=== PATIENT | female | born 1985 | race Hispanic/Latino ===

== ENCOUNTER 2020-10-29 01:52 | Inpatient (IN) | payer MEDICAID ==
[~2020-10-29] VITALS: Ht 160 cm; Wt 61.7 kg
[2020-10-29] MEDS ORDERED: LACTATED RINGERS 1000ML IV PRN (02:15)
[2020-10-29 02:30] LABS: APPEARANCE,URINE Clear (CLEAR); BILIRUBIN,URINE Negative (NEGATIVE); COLOR,URINE Yellow (YELLOW); GLUCOSE, URINE (UA) Negative (NEGATIVE); KETONES,URINE Negative (NEGATIVE); LEUKOCYTE ESTERASE ,URINE Small (NEGATIVE); NITRATE,URINE Negative (NEGATIVE); OCCULT BLOOD,URINE Negative (NEGATIVE); PROTEIN,URINE Negative (NEGATIVE)
[2020-10-29] MEDS ORDERED: AMPICILLIN 2GM+NS 100ML 100 ML IV SCH (02:45)
[2020-10-29] MEDS ORDERED: LACTATED RINGERS 1000ML 1,000 ML IV PRN (02:45)
[2020-10-29] MEDS ORDERED: EPHEDRINE SULFATE 50 MG/ML AMPULE IVP PRN (02:45)
[2020-10-29] MEDS ORDERED: NALOXONE HCL 0.4 MG/1 ML ML IV PRN (02:45)
[2020-10-29] MEDS ORDERED: LACTATED RINGERS 500 ML 500 ML IV PRN (02:45)
[2020-10-29] MEDS ORDERED: OXYTOCIN-LR 20 UNITS/1000 ML 1,000 ML IV SCH (02:45)
[2020-10-29 02:47] LABS: BACTERIA,URINE Few /HPF (None Seen); RBC,URINE None Seen /HPF (0-1); SQUAMOUS EPITHELIAL CELL,UR Few /HPF (0-2)
[2020-10-29 02:54] LABS: HEMATOCRIT 33.8 % (36-48); MEAN CORPUSCULAR HEMOGLOBIN 29.4 pg (27.0-33.0); MEAN CORPUSCULAR HGB CONC 32.5 g/dL (32.0-36.0); MEAN CORPUSCULAR VOLUME 90.4 fL (79-99); NUCLEATED RED BLOOD CELLS 0.6 % (0.0-0.19); RED BLOOD CELL COUNT(AUTO) 3.74 MIL/uL (4.00-5.50); RED CELL DISTRIBUTION WIDTH 14.1 % (11.0-15.5); WHITE BLOOD COUNT (AUTO) 8.2 K/uL (4.8-10.8)
[2020-10-29] MEDS ORDERED: AMPICILLIN 2GM+NS 100ML 100 ML IV ONE (03:05)
[2020-10-29] MEDS ORDERED: LACTATED RINGERS 1000ML 1,000 ML IV ONE (03:06)
[2020-10-29 03:10] VITALS: BP 140/89
[2020-10-29 03:26] LABS: AMPHET/METH SCREEN,URINE NEGATIVE (NEGATIVE); BARBITURATE SCREEN, URINE NEGATIVE (NEGATIVE); BENZODIAZEPINES SCREEN,URINE NEGATIVE (NEGATIVE); CANNABINOID SCREEN,URINE NEGATIVE (NEGATIVE); COCAINE SCREEN,URINE NEGATIVE (NEGATIVE); OPIATE SCREEN,URINE NEGATIVE (NEGATIVE); PHENCYCLIDINE SCREEN,URINE NEGATIVE (NEGATIVE)
[2020-10-29] MEDS ORDERED: PREN1TAB80 PO (04:55)
[2020-10-29] MEDS ORDERED: LIDOCAINE HCL 1% 20 ML VIAL ONE (05:49)
[2020-10-29] MEDS ORDERED: ACETAMINOPHEN 325 MG TAB PO PRN (06:15)
[2020-10-29] MEDS ORDERED: LANOLIN 30GM OINTMENT TP PRN (06:15)
[2020-10-29] MEDS ORDERED: WITCH HAZEL 1 PAD TP PRN (06:15)
[2020-10-29] MEDS ORDERED: DIPH,PERTUSS(ACELL),TET VAC/PF 0.5 ML VIAL IM PRN (06:15)
[2020-10-29] MEDS ORDERED: IBUPROFEN 600 MG TABLET PO PRN (06:15)
[2020-10-29] MEDS ORDERED: ACETAMINOPHEN-CODEINE 300/30MG TAB PO PRN (06:15)
[2020-10-29] MEDS ORDERED: MEASLES/MUMPS/RUBELLA VACCINE, LIVE 0.5 ML/VIAL SQ PRN (06:15)
[2020-10-29] MEDS ORDERED: BENZOCAINE/LANOLIN/ALOE VERA 60 ML AEROSOL TP PRN (06:15)
[2020-10-29] MEDS ORDERED: AMPICILLIN 1GM+NS 50ML 50 ML IV SCH (07:00)
[2020-10-29 08:00] VITALS: BP 155/83
[2020-10-29] MEDS: SERTRALINE HCL 50 MG TABLET PO SCH (09:10)
[2020-10-29] MEDS: DOCUSATE SODIUM 100 MG CAP PO SCH ×2 (09:11→21:01)
[2020-10-29 11:55] VITALS: BP 152/89
[2020-10-29 12:36] LABS: RAPID PLASMA REAGIN NONREACTIVE (NONREACTIVE)
[2020-10-29 16:00] VITALS: BP 151/84
[2020-10-29 20:00] VITALS: BP 134/70
[2020-10-29] MEDS ORDERED: TRAZODONE HCL 50 MG TAB PO SCH (21:00)
[2020-10-30] VITALS: BP 124/64
[2020-10-30 04:00] VITALS: BP 140/64
[2020-10-30 06:11] LABS: HEPATITIS Bs ANTIGEN SCREEN P Negative (Negative)
[2020-10-30 07:35] VITALS: BP 135/75
[2020-10-30] MEDS: SERTRALINE HCL 50 MG TABLET PO SCH (09:00)
[2020-10-30] MEDS: DOCUSATE SODIUM 100 MG CAP PO SCH (09:43)
== END 2020-10-30 19:05 | disposition home or self-care (01) | DRG 560 ==
LOC: EDH 01:52 → OBSVTOIN 01:53 → LDH 01:53 → UNDOADMOB 01:53 → LDH 01:54 → WSH 14:22
PROVIDERS: ADMIT Obstetrics & Gynecology; ATTEND Obstetrics & Gynecology
PROC: 10E0XZZ Delivery of Products of Conception, External Approach (ICD-10-PCS; principal; 2020-10-29)
PROC: 10907ZC Drainage of Amniotic Fluid, Therapeutic from Products of Conception, Via Natural or Artificial Opening (ICD-10-PCS; 2020-10-29)
PROC: 3E0R3BZ Introduction of Anesthetic Agent into Spinal Canal, Percutaneous Approach (ICD-10-PCS; 2020-10-29)
PROC: 00HU33Z Insertion of Infusion Device into Spinal Canal, Percutaneous Approach (ICD-10-PCS; 2020-10-29)
PROC: 3E0234Z Introduction of Serum, Toxoid and Vaccine into Muscle, Percutaneous Approach (ICD-10-PCS; 2020-10-29)
PROC: 3E0134Z Introduction of Serum, Toxoid and Vaccine into Subcutaneous Tissue, Percutaneous Approach (ICD-10-PCS; 2020-10-29)
DX: O69.1XX0 Labor and delivery complicated by cord around neck, with compression, not applicable or unspecified (principal); Z37.0 Single live birth; Z3A.38 38 weeks gestation of pregnancy; O99.344 Other mental disorders complicating childbirth; F41.9 Anxiety disorder, unspecified; F32.9 Major depressive disorder, single episode, unspecified; Z23 Encounter for immunization
CPT/HCPCS: 36415; 80305; 81001; 85027; 86592; 86701; 86850; 86900; 86901; 87340; 87390; A4314; G0378; J0290; J2590; J7120